=== PATIENT | female | born 1975 | race Caucasian/White ===

== ENCOUNTER 2018-06-07 17:42 | Emergency (ER) | payer SELFPAY ==
[~2018-06-07] VITALS: Ht 157.5 cm; Wt 57.0 kg
[2018-06-07 19:07] LABS: BASOPHILS % 0.8 % (0.0-2.0); EOSINOPHILS % 2.4 % (0.0-5.0); HEMATOCRIT. 34.6 % (36.0-48.0); HEMOGLOBIN. 11.3 g/dL (12.0-16.0); LYMPHOCYTES % 25.8 % (20.0-50.0); MEAN CORPUSCULAR VOLUME 79.7 fL (81.0-99.0); MEAN PLATELET VOLUME 8.9 fl (7.4-10.4); MONOCYTES % 8.3 % (2.0-8.0); NEUTROPHILS % 62.7 % (40.0-76.0); PLATELET 234 x1000/uL (130-400); RED BLOOD CELL COUNT 4.34 mill/uL (4.2-5.4); RED CELL DISTRIBUTION WIDTH 18.7 % (11.6-14.6)
[2018-06-07 19:14] LABS: CHLORIDE 107 mEq/L (98-107)
[2018-06-07 19:16] LABS: HCG SCREEN NEGATIVE
[2018-06-07 19:20] LABS: D-DIMER 0.26 mg/L FEU (<0.50); PARTIAL THROMBOPLASTIN TIME 27.7 sec (23.4-31.0); PROTHROMBIN TIME 10.5 sec (9.1-11.1)
[2018-06-07] MEDS ORDERED: ASPIRIN 325MG EC TABLET PO ONE (20:00)
[2018-06-07] MEDS ORDERED: ACETAMINOPHEN 325MG TABLET PO ONE (21:30)
[2018-06-07 21:33] VITALS: BP 126/74
== END 2018-06-07 22:01 | disposition left against medical advice (07) ==
LOC: ER 18:10
DX: R07.89 Other chest pain (principal); R06.02 Shortness of breath; R42 Dizziness and giddiness; R51 Headache; Z71.89 Other specified counseling
CPT/HCPCS: 36415; 71045; 83880; 84484; 84703; 85379; 93005; 99284